=== PATIENT | female | born 1995 | race Caucasian/White ===

== ENCOUNTER 2020-03-01 15:53 | Outpatient (CLI) | payer BC, OTHER ==
[~2020-03-01] VITALS: Ht 167.6 cm; Wt 78.4 kg
[2020-03-01 17:18] LABS: MICROSCOPIC INDICATED
[2020-03-01] MEDS ORDERED: HYDROcodone/APAP 5/325 TABLET ONE (18:17)
[2020-03-01] MEDS ORDERED: HYDROcodone/APAP 5/325 TABLET PO ONE (18:30)
== END 2020-03-01 22:42 | disposition home or self-care (01) ==
LOC: LDOP 15:53
PROVIDERS: ATTEND Obstetrics & Gynecology
DX: O98.512 Other viral diseases complicating pregnancy, second trimester (principal); O26.892 Other specified pregnancy related conditions, second trimester; N13.30 Unspecified hydronephrosis; R10.9 Unspecified abdominal pain; Z3A.25 25 weeks gestation of pregnancy
CPT/HCPCS: 76775; 76815; 81001; 87086; 87635; 99211; G0463

== ENCOUNTER 2020-04-05 02:46 | Emergency (ER) | payer OTHER ==
[~2020-04-05] VITALS: Ht 167.6 cm; Wt 81.2 kg
--- NOTE | 2020-04-05 02:48 | NUR ---
SPOKE WITH SPENCER FROM [facility] THEY WILL ASSESS HEARTONES AFTER MOM IS EVAL IN ER.
--- NOTE | 2020-04-05 03:16 | NUR ---
Pt states she woke up out of sleep at midnight feeling like she was more sob than usual and that her tongue felt like it was swelling. No rash, no obvious lip swelling or tongue swelling noted. On cont pulse ox 96%RA. ERP informed will evaluate. AIDET provided. Will continue to monitor.
[2020-04-05] MEDS ORDERED: DIPHENHYDRAMINE 25 MG CAPSULE PO ONE (03:30)
[2020-04-05] MEDS ORDERED: DIPHENHYDRAMINE 25 MG CAPSULE ONE (03:36)
--- NOTE | 2020-04-05 03:45 | NUR ---
FHT auscultated 165bpm. Mom HR 89. Medicated per order, will continue to monitor.
[2020-04-05 03:53] VITALS: BP 108/65
--- NOTE | 2020-04-05 04:34 | NUR ---
Pt says she doesn't feel the "heavy tongue" feeling anymore. VS have remained stable, o2 sat 96%RA.
== END 2020-04-05 04:48 | disposition home or self-care (01) ==
LOC: ED 03:57
DX: O26.893 Other specified pregnancy related conditions, third trimester (principal); R06.02 Shortness of breath; R06.00 Dyspnea, unspecified; M54.2 Cervicalgia; R22.0 Localized swelling, mass and lump, head; Z3A.32 32 weeks gestation of pregnancy
CPT/HCPCS: 99282; Q0163

== ENCOUNTER 2020-04-21 21:40 | Outpatient (CLI) | payer OTHER ==
[~2020-04-21] VITALS: Ht 167.6 cm; Wt 81.8 kg
[2020-04-21 22:00] VITALS: BP 114/65
[2020-04-21 23:05] LABS: MICROSCOPIC NOT IND
== END 2020-04-21 23:37 | disposition home or self-care (01) ==
LOC: LDOP 21:40
PROVIDERS: ATTEND Obstetrics & Gynecology
DX: O36.8130 Decreased fetal movements, third trimester, not applicable or unspecified (principal); Z3A.33 33 weeks gestation of pregnancy
CPT/HCPCS: 59025; 76815; 81003; 87086; 89060; Q0114

== ENCOUNTER 2021-01-02 19:44 | Emergency (ER) | payer OTHER ==
[~2021-01-02] VITALS: Ht 167.6 cm; Wt 81.6 kg
[~2021-01-02 19:44] MED LIST: HYDR-2214 PO; IBUP-1222 PO; PREN1TAB60 PO; SENN-92 PO
[2021-01-02 19:54] VITALS: BP 104/72
[2021-01-02 20:33] LABS: BASOPHILS % (AUTO) 0 % (0-1); EOSINOPHILS % (AUTO) 0 % (1-7); LYMPHOCYTES % (AUTO) 14 % (22-44); MEAN CORPUSCULAR HEMOGLOBIN 30.9 pg (27.0-34.8); MEAN CORPUSCULAR HGB CONC 34.3 g/dL (32.4-35.8); MEAN PLATELET VOLUME 8.7 fL (7.4-10.4); MONOCYTES % (AUTO) 12 % (2-9); NEUTROPHILS % (AUTO) 74 % (42-75); PLATELET COUNT 264 x10^3/uL (130-400); RED BLOOD COUNT 4.36 x10^6/uL (3.82-5.3)
[2021-01-02 20:42] LABS: ALBUMIN 3.2 g/dL (3.4-5.0); ANION GAP 8 mmol/L (5-15); CALCIUM 8.7 mg/dL (8.5-10.1); CHLORIDE 104 mmol/L (98-107); CREATININE 0.57 mg/dL (0.55-1.02)
--- NOTE | 2021-01-02 22:09 | NUR ---
Attempted to get urine from patient however patient had just returned from bathroom. Provided water.
[2021-01-02 23:11] LABS: MICROSCOPIC NOT IND
== END 2021-01-02 23:40 | disposition home or self-care (01) ==
LOC: ED 22:45
DX: O98.512 Other viral diseases complicating pregnancy, second trimester (principal); U07.1 COVID-19; J06.9 Acute upper respiratory infection, unspecified; R93.89 Abnormal findings on diagnostic imaging of other specified body structures; R10.84 Generalized abdominal pain; Z3A.10 10 weeks gestation of pregnancy
CPT/HCPCS: 36415; 76801; 80048; 81003; 82040; 84702; 85025; 99284; U0003; U0005